=== PATIENT | female | born 1980 | race Caucasian/White ===

== ENCOUNTER → 2018-08-26 | Outpatient (CLI) | payer OTHER ==
--- NOTE | 2018-08-26 19:29 | Diagnostic Imaging Report ---
INDICATION: Screening. EXAMINATION: Digital mammogram bilateral screening with 3-D tomosynthesis. The current study was also evaluated with a Computer Aided Detection (CAD) system. This is the patient's baseline study. At this time, there are no current complaints. FINDINGS: The fibroglandular tissue in both breasts is heterogeneously dense. This does limit the sensitivity of this exam. On the craniocaudad view of the left breast approximately 10 CM from the nipple just lateral to midline, there is a small 7 MM area of increased density. There is no corresponding abnormality seen on the MLO view and this finding most likely is related to fibroglandular tissue alone. Even so, as there are no prior studies available for comparison I would recommend that a compression view of this area be obtained in the CC projection as well as a true lateral view. Ultrasound of left breast should be performed as well. The right breast is unremarkable. IMPRESSION: Additional mammographic views and ultrasound of left breast would be recommended for further evaluation. ACR BI-RADS Category 0: Incomplete. (Needs additional imaging evaluation). Result letter will be mailed to the patient. Note: At least 10% of breast cancer is not imaged by mammography. Dictated by: Dictated on workstation # [id number]
== END ==
LOC: RAD 11:39
PROVIDERS: ATTEND Nurse Practitioner Women's Health
DX: Z12.31 Encounter for screening mammogram for malignant neoplasm of breast (principal)
CPT/HCPCS: 77067

== ENCOUNTER → 2018-09-29 | Outpatient (CLI) | payer OTHER ==
[~2018-09-29] MED LIST: GADOBUTROL 7.5 MMOL/7.5 ML (GADAVIST) VIAL IV ONE
--- NOTE | 2018-09-29 08:57 | Diagnostic Imaging Report ---
PROCEDURE: MR imaging of the brain without contrast. TECHNIQUE: Multiplanar, multisequence MR imaging of the brain was performed without contrast. INDICATION: Elevated prolactin level. No prior studies are available for comparison. FINDINGS: Study is compromised due to absence of intravenous contrast. In particular, evaluation for subtle pituitary mass is limited. No definite sellar or suprasellar mass is identified on the noncontrast study. Corpus callosum is unremarkable. Ventricles and sulci are within normal limits. There is no diffusion restriction. The normal expected flow-voids within the carotid siphons are seen. There is no midline shift or hemorrhage identified. IMPRESSION: Unremarkable noncontrast MRI of the brain. Postcontrast imaging would be useful to evaluate for pituitary microadenoma. Dictated by: Dictated on workstation # [id number]
== END ==
LOC: RAD 07:54
PROVIDERS: ATTEND Nurse Practitioner Women's Health
DX: E22.9 Hyperfunction of pituitary gland, unspecified (principal)
CPT/HCPCS: 70551